=== PATIENT | male | born 1935 | race Caucasian/White ===

== ENCOUNTER → 2021-04-12 08:40 | Outpatient (CLI) | payer MEDICARE, OTHER, SELFPAY ==
--- NOTE | 2021-04-12 | DI.ECHO.S_ITS ---
[facility]---------+ [facility] +---------+ : : [address] : [place] : : : : [id number] : : : : Phone: [phone]+ Echocardiogram Report + + :Name: ALTAF REESE Study Date: 04/12/2021 Height: 71 in : :[facility] ReadingLocation: Weight: 205 lb : : Gender: Male BSA: 2.1 m2 : :: 1935 Age: 85 yrs BP: 169/95 mmHg: :Reason For Study: CARDIAC MURMUR : :Ordering Physician: RUIZ, : :JEREMÍAS Performed By: Asia Boles : :Referring: JEREMÍAS MELCHOR : + + Interpretation Summary The ejection fraction is estimated to be 60-65%. The aortic valve is moderately calcified. There is moderately reduced leaflet mobility. There is moderate aortic stenosis. The calculated aortic valve area is 1.3 cm2. There is mild tricuspid regurgitation. The right ventricular systolic pressure is estimated to be at least 32 mmHg based on an estimated right atrial pressure of 3 mm Hg. Procedure: A two-dimensional transthoracic echocardiogram with color flow and Doppler was performed. The study quality was technically adequate. There is no prior echocardiogram noted for this patient. The patient was in sinus bradycardia with heart rates between 49-53 bpm during the exam. Left Ventricle: The left ventricle is normal in size and wall thickness. The ejection fraction is estimated to be 60-65%. There are no obvious focal wall motion abnormalities noted but poor endocardial definition reduces the sensitivity for the detection of such. Right Ventricle: The right ventricle is normal in size and function. Atria: The left atrium is mildly dilated. Right atrial size is normal. There is no Doppler evidence for an interatrial shunt. Mitral Valve: The mitral valve is normal in structure and function. There is trace mitral regurgitation. Aortic Valve: The aortic valve is moderately calcified. There is moderately reduced leaflet mobility. There is moderate aortic stenosis. The peak aortic velocity is 3.26 m/sec. The aortic valve mean gradient is 26 mmHg. The calculated aortic valve area is 1.3 cm2. There is trace aortic regurgitation. Tricuspid Valve: The tricuspid valve is normal in structure and function. There is mild tricuspid regurgitation. The right ventricular systolic pressure is estimated to be at least 32 mmHg based on an estimated right atrial pressure of 3 mm Hg. Pulmonic Valve: The pulmonic valve is not well seen, but is grossly normal. There is mild pulmonic regurgitation. Great Vessels: The aortic root is normal size. The ascending aorta is at the upper limits of normal in size. The IVC is of normal diameter and collapses greater than 50% with a sniff. This suggests a low right atrial pressure of 3 mm Hg. Pericardium/ Pleura There is no pericardial effusion. There is no pleural effusion. MMode/2D Measurements & Calculations LVIDd: 5.2 cm LVOT diam: 2.2 cm LVIDs: 3.4 cm Ao root diam: 3.4 cm FS: 33.9 % asc Aorta Diam: 3.7 cm IVSd: 0.89 cm Ao Arch Diam (Prox Trans): 3.3 cm LVPWd: 1.1 cm LV christianson. diameter/BSA (cm/m^2): 2.4 LV sys. diameter/BSA (cm/m^2): 1.6 LA A2 area: 24.4 cm2 RA long axis: 5.4 cm LA A4 area: 21.3 cm2 RA area: 17.3 cm2 LA length (vol): 5.7 cm RA vol: 47.4 ml LA vol: 76.8 ml RA : 22.3 ml/m2 LA vol index: 36.1 ml/m2 IVC diam: 1.8 cm RVD1 (basal): 4.1 cm RVD2 (mid): 3.7 cm TAPSE: 2.1 cm Doppler Measurements & Calculations Ao V2 max: 326.8 cm/sec LVOT Max Kam: 113.2 cm/sec Ao V2 mean: 211.6 cm/sec LV V1 max P.1 mmHg Ao max P.7 mmHg LV V1 VTI: 27.1 cm Ao mean P.9 mmHg VIN(I,D): 1.2 cm2 Ao V2 VTI: 82.9 cm VIN(V,D): 1.3 cm2 sev ratio: 0.33 VIN indexed to BSA (cm^2/m^2): 0.57 MV E max kam: 101.4 cm/sec TR max kam: 270.0 cm/sec MV A max kam: 107.3 cm/sec TR max P.2 mmHg MV E/A: 0.95 PA V2 max: 125.3 cm/sec Med Peak E' Kam: 5.7 cm/sec PA V2 mean: 81.5 cm/sec E/E' med: 17.8 PA mean P.1 mmHg Lat Peak E' Kam: 6.5 cm/sec PA pr(Accel): 43.0 mmHg E/E' lat: 15.7 E/e' average: 16.8 MV dec time: 0.26 sec SV([facility]): 100.5 ml Reading Physician:03:30 PM
== END ==
PROVIDERS: PCP Physician Assistant Medical; Referring Provider Physician Assistant Medical; Visit Provider Physician Assistant Medical
DX: R01.1 Cardiac murmur, unspecified (principal); I08.2 Rheumatic disorders of both aortic and tricuspid valves
CPT/HCPCS: 93306